=== PATIENT | female | born 1990 | race Caucasian/White ===

== ENCOUNTER 2022-05-06 15:30 | Inpatient (IN) | payer MEDICAID ==
[~2022-05-06] VITALS: Ht 165.2 cm; Wt 123.6 kg
[2022-05-12] VITALS (12 sets, daily range): BP systolic 93–113; BP diastolic 46–74; PULSE 57–79; TEMP 97.5–98
[2022-05-12 14:19] LABS: BASO % 0.3 % (0.0-2.0); EOS # 0.1 K/mm3 (0.0-0.7); EOS % 0.9 % (0.0-4.0); GRAN # 4.5 K/mm3 (1.4-6.5); GRAN % 64.4 % (42.2-75.2); HEMOGLOBIN 11.4 g/dl (12.5-16.0); LYMPH % 28.2 % (20.0-51.0); MEAN CELL VOLUME 79 fl (80.0-100.0); MEAN CORPUSCULAR HEMOGLOBIN 26 pg (27-31); MEAN CORPUSCULAR HGB CONC 34 g/dl (33.0-37.0); MEAN PLATELET VOLUME 10.9 fl (7.4-10.4); MONO # 0.4 K/mm3 (0.1-0.6); MONO % 5.5 % (1.7-9.3); PLATELET COUNT 186 K/mm3 (130-400); RED BLOOD COUNT 4.32 M/mm3 (4.10-5.30); REDCELL DISTRIBUTION WIDTH-CV 15.9 % (11.5-14.5)
--- NOTE | 2022-05-12 14:30 | NUR ---
PT AMBULATED TO UNIT AT 0150. PATIENT IS AN HOUR AND HALF LATE FOR SURGERY. DR SINGH UPDATED AND PTS SURGERY PUSHED BACK TO LATER THIS AFTERNOON. PT INFORMED. PT STATES NO CTX, NO LEAKING OF FLUID, AND REPORTS MOVEMENT. CHANGED INTO GOWN AND MONITORS APPLIED. VSS. CATEGORY 1 STRIP WITH ACCELERATIONS AND REACTIVE NST. NO CTX NOTED. IV STARTED BY Nick PATINO AND IV BOLUS INFUSING. PRE OP MEDS OF PROTONIX AND ZOFRAN GIVEN. CONSENTS SIGNED AND PT READY FOR SURGERY.
[2022-05-12] MEDS ORDERED: REGLAN 5MG T5 MG/TAB PO (14:32)
[2022-05-12] MEDS ORDERED: PRENATAL ×2 (14:32→14:33)
[2022-05-12] MEDS ORDERED: NATURAL IRON65 MG (14:33)
--- NOTE | 2022-05-12 17:45 | NUR ---
PT MOVED FROM PACU TO ROOM. PATIENT STABLE AND NOT HAVING ANY PAIN. SETTLED IN ROOOM AND DINNER ORDERED. BABY WITH MOTHER.
[2022-05-13 03:51] VITALS: BP 102/56; PULSE 58; TEMP 97.6
[2022-05-13 09:00] VITALS: BP 86/56; PULSE 60; TEMP 97.8
--- NOTE | 2022-05-13 09:49 | NUR ---
Initial visit; Patient thanked Archivist Political History for offering a blessing for her and her son even though her son was not in the room with her. Archivist Political History thanked Emilee for coming to our hospital.
[2022-05-13 10:10] VITALS: BP 92/56
[2022-05-13] MEDS ORDERED: MOTRIN 800800 MG/TAB PO (11:01)
[2022-05-13] MEDS ORDERED: PERCOCET 325 MG1 TA3 PO (11:02)
--- NOTE | 2022-05-13 13:07 | NUR ---
SW met with MOB at bedside after receiving consult. She reports that they moved here from [place] and she only as her partner and baby's father [place] as a support system. 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 MOB admit that she has not taken her prescription for her depression in over 2 months because " i didn't feel like it was working". SW strongly encouraged her to speak with her physician about getting back on her medication. She reports that she has "no idea" of how she is going to buy items for the baby such as diapers and formula. She does not have a crib at home, instead she has a playpen. She verbalizes that throughout her she did not feel attached to this baby and spent much of the time in denial or thinking "this isn't a good idea". The FOB supports the family by working. Her two oldest children were in their fathers custody (in [place]) but he recently lost custody of the kids and the patient has been working with [facility] for reintergration. Patient is provided the [employer] Resource guide and highlighted resources such as WIC, [facility], their diaper program and life [employer] minist[facility] for needed supplies.
[2022-05-13 17:00] VITALS: BP 92/59; PULSE 64; TEMP 98
--- NOTE | 2022-05-13 17:14 | NUR ---
PT AMBULAITNG OFF UNIT TO GIFT SHOP WITH DAUGHTER. CHARGE NURSE AWARE. PT STABLE AT THIS TIME.
[2022-05-13 20:40] VITALS: BP 97/61; PULSE 70; TEMP 97.4
[2022-05-14 08:01] VITALS: BP 105/62; PULSE 64; TEMP 97.2
--- NOTE | 2022-05-14 12:41 | NUR ---
DISCHARGE INSTRUCTIONS EXPAINED TO PT AND FOLLOW UP APPOINTMENT MADE. PT VERBALIZED UNDERSTANDING. PT LEFT UNIT AMBULATING. PT LEFT IN STABLE CONDITION WITH NO COMPLAINTS.
== END 2022-05-14 12:41 | disposition home or self-care (01) | DRG 788 ==
LOC: OB 05-11 15:29
PROVIDERS: ADMIT Obstetrics & Gynecology
PROC: 10D00Z1 Extraction of Products of Conception, Low, Open Approach (ICD-10-PCS; principal; 2022-05-12)
DX: O34.211 Maternal care for low transverse scar from previous cesarean delivery (principal); O48.0 Post-term pregnancy; Z3A.40 40 weeks gestation of pregnancy; Z37.0 Single live birth; O99.214 Obesity complicating childbirth; E66.9 Obesity, unspecified; J45.909 Unspecified asthma, uncomplicated; O99.52 Diseases of the respiratory system complicating childbirth; O99.02 Anemia complicating childbirth; D64.9 Anemia, unspecified; O99.344 Other mental disorders complicating childbirth; F32.A Depression, unspecified; F41.9 Anxiety disorder, unspecified; Z91.199 Patient's noncompliance with other medical treatment and regimen due to unspecified reason; O99.334 Smoking (tobacco) complicating childbirth; F17.210 Nicotine dependence, cigarettes, uncomplicated; Z53.29 Procedure and treatment not carried out because of patient's decision for other reasons
CPT/HCPCS: J0690; J1100; J1885; J2405; J2590; J7120